=== PATIENT | female | born 1945 | race Caucasian/White ===

== ENCOUNTER 2017-09-24 14:22 | Inpatient (IN) ==
[2017-09-24 20:18] LABS: Baso % (Auto) 0.7 % (0.0-2.0); Eos # (Auto) 0.2 th/mm3 (0.0-0.4); Eos % (Auto) 2.9 % (0.0-4.0); Hematocrit 45.6 % (35.0-46.0); Hemoglobin 15.3 gm/dL (11.6-15.3); Lymph # (Auto) 2.3 th/mm3 (1.0-4.8); Lymph % (Auto) 33.8 % (9.0-44.0); Mean Corpuscular HGB Conc 33.5 % (32.0-36.0); Mean Corpuscular Hemoglobin 31.8 pg (27.0-34.0); Mean Platelet Volume 7.9 fL (7.0-11.0); Mono # (Auto) 0.7 th/mm3 (0.0-0.9); Mono % (Auto) 9.7 % (0.0-8.0); Neut # (Auto) 3.6 th/mm3 (1.8-7.7); Neut % (Auto) 52.9 % (16.0-70.0); Platelet Count 267 th/mm3 (150-450); Red Cell Distribution Width 13.3 % (11.6-17.2); White Blood Count 6.9 th/mm3 (4.0-11.0)
[2017-09-24 20:29] LABS: Activated Partial Thrombo Time 23.2 sec (24.3-30.1); Prothrombin Time 10.1 sec (9.8-11.6)
--- NOTE | 2017-09-24 20:36 | XR ---
EXAM DATE: 09/24/2017 8:13 PM EDT AGE/SEX: 72 years / Female INDICATIONS: Evaluate for pneumonia, pneumothorax, or communicable disease. Pre-op ORIF hip. CLINICAL DATA: This is the patient's initial encounter. Patient reports that signs and symptoms have been present for 1 day and indicates a pain score of 0/10. MEDICAL/SURGICAL HISTORY: None. None. COMPARISON: No prior exams available for comparison. FINDINGS: A single AP view of the chest demonstrates the lungs to be symmetrically aerated without evidence of mass, infiltrate or effusion. The cardiomediastinal contours are unremarkable. Osseous structures a re intact. CONCLUSION: No acute cardiopulmonary process. Electronically signed by: Jonathan Davis MD 09/24/2017 8:35 PM EDT
[2017-09-24 20:39] LABS: Albumin 3.6 g/dL (3.4-5.0); Anion Gap 10 meq/L (5-15); Aspartate Aminotransferase 20 U/L (15-37); Blood Urea Nitrogen 19 mg/dL (7-18); Calcium 9.1 mg/dL (8.5-10.1); Carbon Dioxide 26.4 meq/L (21.0-32.0); Chloride 103 meq/L (98-107); Glomerular Filtration Rate Greater Than 89 mL/min (>89); Glucose,Random 96 mg/dL (74-106); Potassium 3.4 meq/L (3.5-5.1); Sodium 139 meq/L (136-145)
[2017-09-24 20:40] LABS: Alanine Aminotransferase 20 U/L (10-53)
[2017-09-24 20:43] LABS: Alkaline Phosphatase 112 U/L (45-117); Total Protein 7.5 g/dL (6.4-8.2)
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
--- NOTE | 2017-09-24 21:10 | US ---
EXAM DATE: 09/24/2017 9:04 PM EDT AGE/SEX: 72 years / Female INDICATIONS: Right leg pain and swelling. CLINICAL DATA: This is the patient's initial encounter. Patient reports that signs and symptoms have been present for 1 day and indicates a pain score of 9/10. MEDICAL/SURGICAL HISTORY: Hypercholesterolemia. Appendectomy. COMPARISON: [facility], US LEG VENOUS DOPPLER, RIGHT, 09/17/2017. . TECHNIQUE: Venous ultrasound of both lower extremities was performed from the inguinal ligament to t he proximal calf. Real-time, color Doppler and spectral tracing, compression and augmentation techni ques were used. FINDINGS: There is occlusive thrombus in the right popliteal, peroneal and posterior tibial veins. T he common femoral vein and superficial femoral vein are patent. CONCLUSION: Occlusive thrombus in the right popliteal, peroneal, and posterior tibial veins. Electronically signed by: Jonathan Davis MD 09/24/2017 9:09 PM EDT
[2017-09-24] MEDS ORDERED: Temazepam 15 MG Capsule PO PRN (22:25)
[2017-09-24] MEDS ORDERED: Acetaminophen 325 MG Tablet PO PRN (22:25)
[2017-09-24] MEDS ORDERED: Bisacodyl 10 MG Supp RECTAL PRN (22:25)
[2017-09-24] MEDS ORDERED: Morphine Inj 4 MG/ML Vial IV.PUSH PRN (22:45)
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
[2017-09-24] MEDS: Enoxaparin Inj 60 MG/0.6 ML Syringe SQ SCH (23:20)
[2017-09-25] MEDS ORDERED: Chlorhexidine Gluconate 2% 1 Pack (2 Cloths) TOPICAL SCH (00:30)
[2017-09-25] MEDS ORDERED: Sodium Chlor 0.9% Inj 500 ML IV.SIG SCH (01:00)
[2017-09-25] MEDS: Sod Chloride 0.9% Inj 1,000 ML IV.CONT SCH ×2 (02:38→09:14)
[2017-09-25 07:32] LABS: Baso % (Auto) 0.4 % (0.0-2.0); Eos # (Auto) 0.2 th/mm3 (0.0-0.4); Hemoglobin 13.6 gm/dL (11.6-15.3); Lymph # (Auto) 1.7 th/mm3 (1.0-4.8); Lymph % (Auto) 27.8 % (9.0-44.0); Mean Corpuscular HGB Conc 33.9 % (32.0-36.0); Mean Corpuscular Volume 94.2 fL (80.0-100.0); Mean Platelet Volume 7.5 fL (7.0-11.0); Mono # (Auto) 0.6 th/mm3 (0.0-0.9); Mono % (Auto) 10.5 % (0.0-8.0); Neut # (Auto) 3.4 th/mm3 (1.8-7.7); Neut % (Auto) 57.3 % (16.0-70.0); Platelet Count 238 th/mm3 (150-450); Red Blood Count 4.24 mil/mm3 (4.00-5.30); Red Cell Distribution Width 13.1 % (11.6-17.2)
[2017-09-25 07:46] LABS: Alanine Aminotransferase 16 U/L (10-53); Albumin 2.8 g/dL (3.4-5.0); Anion Gap 10 meq/L (5-15); Aspartate Aminotransferase 15 U/L (15-37); Blood Urea Nitrogen 16 mg/dL (7-18); Calcium 8.6 mg/dL (8.5-10.1); Chloride 107 meq/L (98-107); Glomerular Filtration Rate Greater Than 89 mL/min (>89); Glucose,Random 86 mg/dL (74-106); Potassium 3.7 meq/L (3.5-5.1); Sodium 143 meq/L (136-145)
[2017-09-25 07:47] LABS: Alkaline Phosphatase 92 U/L (45-117); Total Protein 6.1 g/dL (6.4-8.2)
[2017-09-25] MEDS: Senna/Docusate Sodium 8.6/50 MG Tablet PO SCH ×2 (09:14→22:48)
[2017-09-25] MEDS: Enoxaparin Inj 60 MG/0.6 ML Syringe SQ SCH (09:14)
[2017-09-25] MEDS ORDERED: Lidocaine PF 1% Inj 5 ML Syringe INFILTRATN ONE (12:00)
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
--- NOTE | 2017-09-25 15:15 | MB ---
cc: Maxime Barraza MD DATE: 09/25/2017 REASON FOR CONSULTATION: Right femoral neck fracture. HISTORY OF PRESENT ILLNESS: The patient is a 72-year-old female with past history of hyperlipidemia, who did present to Dr. Candelario yesterday with chief complaint of right hip pain. She had a history of fall almost 2 weeks ago, significant right hip pain with difficult ambulation and found to have a valgus impacted right femoral neck fracture. After that evaluation, the patient was also noted to have increasing pain, swelling of the right calf with increasing right lower extremity edema, which was concerning for deep venous thrombosis. The patient was subsequently transferred to [facility] Emergency Room. She has had workup including laboratory studies, different imaging of the hip, and also ultrasound of the right lower extremity, which was positive for deep venous thrombosis. I was contacted last night as the orthopedic surgeon facilities operations technician regarding this patient's complex care. I did recommend, at that time, the patient to have 1 dose of Lovenox for DVT prophylaxis and decrease risk for propagation of the clot and embolization. I have evaluated the patient this morning and I have discussed extensively with her in regard to her condition and treatment options at this point. PAST MEDICAL HISTORY: High cholesterol. PAST SURGICAL HISTORY: Appendectomy. SOCIAL HISTORY: Nonsmoker, nondrinker, no drugs. REVIEW OF SYSTEMS: Negative for 10 systems other than HPI. MEDICATIONS: Include hydrocodone, Tylenol. PHYSICAL EXAMINATION: VITAL SIGNS: Temperature is 98, pulse is 80, respirations 16, blood pressure 150/70. HEENT: Normocephalic, atraumatic. Pupils round. Extraocular movements intact. NECK: Supple. LUNGS: Clear. HEART: Regular rate and rhythm. ABDOMEN: Soft, nontender. EXTREMITIES: She has pain with passive motion of the right hip. She can flex her ankle and toes distally. She does have calf swelling on the right side compared to the left. LABORATORY DATA: White blood cell count 6.9, hemoglobin is 15, hematocrit is 45. BUN is 19, creatinine 0.59, glucose is 96. Venous Doppler ultrasound 09/24/2017 shows an occlusive thrombus of the right popliteal, peroneal and tibial veins. IMPRESSION: A 72-year-old female, status post fall approximately 2 weeks ago with a right valgus impacted femoral neck fracture. She has deep venous thrombosis, right lower extremity. PLAN: I discussed the diagnosis with the patient and treatment options to include the option of nonoperative treatment. We spoke about surgery, including options of percutaneous screw fixation versus bipolar hemiarthroplasty replacement. Because of the alignment and valgus impaction of her fracture, I think this is amenable to percutaneous screw fixation. She does have increased risk as related to her development of deep venous thrombosis. I think it would be appropriate for the patient to undergo placement of an IVC filter preoperatively such that the patient would have a decreased risk of morbidity and mortality if the patient did have an embolic event around the perioperative time of surgery. Consulted Dr. Arana from interventional radiology and he has also asked I get a second opinion consultation per hospital policy from hematology. I did speak to the developmental services worker facilities operations technician and she was in agreement as well. With this further discussion and after placement of the IVC filter, the patient at that point has made decision to proceed with a right percutaneous pinning of her femoral neck fracture. She will receive anticoagulation therapy and blood thinning treatment modalities after surgery as well to help dissolve the clot. Decision for surgery has been made today after identification of the deep venous thrombosis and subsequent treatment of that thrombosis. MD LIBERTY Watson/ELIZABETH , 02:21 PM , 03:13 PM
[2017-09-25] MEDS ORDERED: Iohexol 350 MG/ML 50 ML Vial (for Rad Diag) IVCONTRAST ONE (15:55)
--- NOTE | 2017-09-25 16:14 | P.RAD ---
Post Procedure Progress Note - Procedure Information Supervising Radiologist: Med Arana MD - Plan of Activity See PACS Report for procedural detail/treatment. Vascular - Venous Procedure Abdominal Procedure(s): Retrievable IVC Filter
[2017-09-25] MEDS ORDERED: Iohexol 300 MG/ML 50 ML Vial (for Rad Diag) IVCONTRAST ONE (16:24)
[2017-09-25] MEDS ORDERED: Promethazine 25 MG Supp RECTAL PRN (16:31)
[2017-09-25] MEDS ORDERED: Morphine Inj 4 MG/ML Vial IV.PUSH PRN (16:31)
[2017-09-25] MEDS ORDERED: Post-op Orders (for Pharmacy) OTHER STA (16:31)
[2017-09-25] MEDS ORDERED: ceFAZolin 2 GM Premix Inj 2 GM/50 ML PIGGYBACK IV.SIG ONE (17:02)
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
[2017-09-25] MEDS ORDERED: fentaNYL Citrate Inj 100 MCG/2 ML Ampul ONE (17:45)
--- NOTE | 2017-09-25 18:45 | XR ---
EXAM DATE: 09/25/2017 6:08 PM EDT AGE/SEX: 72 years / Female INDICATIONS: Right hip pinning. CLINICAL DATA: This is the patient's initial encounter. Patient reports that signs and symptoms have been present for 1 day and indicates a pain score of Nonresponsive. MEDICAL/SURGICAL HISTORY: Hypercholesterolemia. Appendectomy. COMPARISON: PCI, XR HIP AP AND LAT, RIGHT, 09/13/2017. . FINDINGS: 2 images from the OR have been submitted. 2 screws are seen through the right femoral neck and head. The hardware is well placed. The right hip joint is normally aligned. CONCLUSION: Successful ORIF. Electronically signed by: Jonathan Davis MD 09/25/2017 6:44 PM EDT
[2017-09-25] MEDS ORDERED: Zolpidem Tartrate 5 MG Tablet PO PRN (21:00)
[2017-09-26] MEDS ORDERED: ceFAZolin Inj 2,000 MG in Sodium Chlor 0.9% Inj 80 ML IV.SIG SCH (01:00)
[2017-09-26] MEDS: ceFAZolin 2 GM Premix Inj 2 GM/50 ML PIGGYBACK IV.SIG SCH ×3 (01:01→16:31)
[2017-09-26] MEDS: Sod Chloride 0.9% Inj 1,000 ML IV.CONT SCH (05:11)
[2017-09-26 08:24] LABS: Hematocrit 40.4 % (35.0-46.0); Hemoglobin 13.9 gm/dL (11.6-15.3)
[2017-09-26] MEDS: Multivitamin/Minerals Therapeutic Tablet PO SCH (09:45)
[2017-09-26] MEDS: Folic Acid 1 MG Tablet PO SCH (09:45)
[2017-09-26] MEDS: Senna/Docusate Sodium 8.6/50 MG Tablet PO SCH ×2 (10:42→22:26)
--- NOTE | 2017-09-26 12:33 | P.PNOP ---
Subjective Interval history: pain controlled. Physical Exam Vital signs: Vital Signs 09/25/17 17:30 09/25/17 17:45 09/25/17 18:00 Temperature 97.9 F Pulse Rate 68 64 70 Respiratory Rate 14 14 14 Blood Pressure 125/60 128/55 L 132/61 Pulse Oximetry 100 100 100 09/25/17 18:15 09/25/17 18:30 09/25/17 20:00 Temperature 98.2 F 97.3 F L Pulse Rate 67 68 88 Respiratory Rate 14 14 18 Blood Pressure 142/58 H 140/61 150/70 H Pulse Oximetry 100 100 95 09/26/17 00:00 09/26/17 04:00 09/26/17 08:00 Temperature 98.8 F 97 F L 97.1 F L Pulse Rate 74 95 H 81 Respiratory Rate 20 18 16 Blood Pressure 128/67 148/78 H 138/65 Pulse Oximetry 95 99 95 Intake & Output 09/25/17 09/26/17 09/26/17 18:59 06:59 18:59 Intake Total 1400 / 1400 50 / 50 Output Total 10 / 10 Balance 1390 / 1390 50 / 50 Weight 60.6 kg Intake: IV 1000 / 1000 50 / 50 NS Inj 1,000 ML @ 100 mls/hr IV 1000 / 1000 .CONT .Q10H MICHAEL Rx#:[id number] Ancef 2 GM Premix Inj 2 gm In 50 / 50 50 ml @ 100 mls/hr IV.SIG Q8H MICHAEL Rx#:[id number] Anesthesia Amount 400 / 400 Output: Estimated Blood Loss 10 / 10 Other: # Voids 3 2 # Bowel Movements 1 Narrative: in bed, nad dressing c/d/i swelling in calf improving nvi Results - Labs CBC & Chem 7: 09/26/17 07:16 09/25/17 06:19 Laboratory Results - last 24 hr 09/26/17 07:16 Hgb 13.9 Hct 40.4 - Imaging Impressions Hip X-Ray 09/25/17 00:00 CONCLUSION: Successful ORIF. Assessment and Plan - Ortho Post Op Day # 1 - Assessment and Plan s/p PCP R hip fx dvt - had ivc filter placed pre-op nwb ok to maintain dressing unless saturated lovenox d/c planning to snf f/up dr. lynn 2 weeks
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
[2017-09-26] MEDS: Enoxaparin Inj 60 MG/0.6 ML Syringe SQ SCH (16:23)
[2017-09-27] MEDS: Enoxaparin Inj 60 MG/0.6 ML Syringe SQ SCH ×2 (05:43→16:45)
[2017-09-27] MEDS: Sod Chloride 0.9% Inj 1,000 ML IV.CONT SCH (05:48)
[2017-09-27] MEDS: Senna/Docusate Sodium 8.6/50 MG Tablet PO SCH ×2 (09:38→20:30)
[2017-09-27] MEDS: Multivitamin/Minerals Therapeutic Tablet PO SCH (09:38)
[2017-09-27] MEDS: Folic Acid 1 MG Tablet PO SCH (09:40)
[2017-09-27 10:48] LABS: Hematocrit 40.9 % (35.0-46.0); Mean Corpuscular HGB Conc 34.4 % (32.0-36.0); Mean Corpuscular Hemoglobin 32.7 pg (27.0-34.0); Mean Corpuscular Volume 95.1 fL (80.0-100.0); Mean Platelet Volume 8.1 fL (7.0-11.0); Platelet Count 229 th/mm3 (150-450); Red Cell Distribution Width 13.2 % (11.6-17.2); White Blood Count 6.6 th/mm3 (4.0-11.0)
[2017-09-27 11:01] LABS: Calcium 8.5 mg/dL (8.5-10.1); Carbon Dioxide 27.5 meq/L (21.0-32.0); Potassium 3.8 meq/L (3.5-5.1)
--- NOTE | 2017-09-27 12:14 | ECG ---
Date Performed: 09/25/2017 Time Performed: 16:38:04 PTAGE: 72 years EKG: Sinus rhythm NORMAL ECG NO PREVIOUS TRACING DOCTOR: Guadalupe Solis Interpretating Date/Time 09/27/2017 12:06:40
--- NOTE | 2017-09-27 13:36 | P.PNONC ---
Subjective Interval history: Patient sitting up in chair in no acute distress. She states that she would like me to look at a lump beside her tailbone. She reports that she noticed this a few weeks ago and she is not sure if it is secondary to sitting more or if there is something actually there. She reports pain in her right hip. Denies chest pain or shortness of breath. Objective Vital Signs/Intake & Output: Vital Signs 09/26/17 16:00 09/26/17 20:00 09/27/17 00:00 Temperature 99.4 F 99.4 F 98.6 F Pulse Rate 96 H 88 90 Respiratory Rate 14 16 16 Blood Pressure 145/69 H 130/60 120/58 L Pulse Oximetry 96 97 96 09/27/17 04:00 09/27/17 08:00 Temperature 97.6 F 98.0 F Pulse Rate 76 76 Respiratory Rate 16 18 Blood Pressure 114/56 L 127/62 Pulse Oximetry 98 95 Intake & Output 09/26/17 09/27/17 09/27/17 18:59 06:59 18:59 Intake Total 150 / 150 150 / 150 Balance 150 / 150 150 / 150 Weight 61.2 kg Intake: IV 150 / 150 Ancef 2 GM Premix Inj 2 gm In 100 / 100 50 ml @ 100 mls/hr IV.SIG Q8H MICHAEL Rx#:[id number] Oral 150 / 150 Other: # Voids 4 1 Date of Last Bowel Movement 09/24/17 09/24/17 Result Diagrams: 09/27/17 09:31 09/27/17 09:31 Laboratory Results: Laboratory Results - last 24 hr 09/27/17 09/27/17 09:31 09:31 WBC 6.6 RBC 4.30 Hgb 14.0 Hct 40.9 MCV 95.1 MCH 32.7 MCHC 34.4 RDW 13.2 Plt Count 229 MPV 8.1 Sodium 143 Potassium 3.8 Chloride 107 Carbon Dioxide 27.5 Anion Gap 9 BUN 13 Creatinine 0.68 Estimated GFR 85 L Random Glucose 105 Calcium 8.5 Medications: Active Medications Generic Name Dose Route Start Last Admin Trade Name Freq PRN Reason Stop Dose Admin Enoxaparin Sodium 60 mg 09/26/17 17:00 09/27/17 05:43 Lovenox Inj SQ 60 mg Q12H MICHAEL Administration Folic Acid 1 mg 09/26/17 09:00 09/27/17 09:40 Folic Acid PO 1 mg DAILY MICHAEL Administration Sodium Chloride 1,000 mls @ 100 mls/hr 09/24/17 23:00 09/27/17 05:48 Ns Inj IV.CONT Not Given .Q10H MICHAEL Lactated Ringer's 1,000 mls @ 30 mls/hr 09/25/17 00:30 09/27/17 05:47 Lr 1000 Ml Inj IV.SIG 09/28/17 00:18 Not Given .Q24H MICHAEL Lactated Ringer's 1,000 mls @ 100 mls/hr 09/25/17 16:45 09/27/17 09:43 Lr 1000 Ml Inj IV.CONT Not Given .Q10H MICHAEL Multivitamins/Minerals 1 tab 09/26/17 09:00 09/27/17 09:38 Theragran-M PO 1 tab DAILY MICHAEL Administration Pantoprazole Sodium 40 mg 09/26/17 09:00 09/27/17 09:40 Protonix PO 40 mg DAILY MICHAEL Administration Senna/Docusate Sodium 1 tab 09/25/17 09:00 09/27/17 09:38 [place]-Colace PO Not Given BID MICHAEL Sodium Chloride 2 ml 09/25/17 21:00 09/27/17 09:40 Ns Flush IV.FLUSH 2 ml BID MICHAEL Administration Thiamine HCl 100 mg 09/26/17 09:00 09/27/17 09:40 Vitamin B1 PO 100 mg DAILY MICHAEL Administration Objective Remarks: GENERAL: Well-nourished, well-developed anxious elderly female patient. Sitting in chair, in no acute distress. SKIN: Warm and dry. Right supraclavicular gauze bandage dry and intact. HEAD: Normocephalic. EYES: No scleral icterus. No injection or drainage. NECK: Supple, trachea midline. CARDIOVASCULAR: Regular rate and rhythm without murmurs. RESPIRATORY: Breath sounds equal bilaterally. No accessory muscle use. GASTROINTESTINAL: Abdomen soft, non-tender, nondistended. EXTREMITIES: No cyanosis, or edema. Bandage to right hip, dry and intact. MUSCULOSKELETAL: Adequate muscle tone. NEUROLOGICAL: No obvious focal deficit. Awake, alert, and oriented x3. PSYCHIATRIC: Anxious; insight and judgment normal. Assessment/Plan - Plan This is a 72-year-old female patient who presented to the hospital after a fall and was found to have a right femoral neck fracture. She was also found to have an occlusive thrombus in the right popliteal, peroneal, and posterior tibial veins. A retrievable IVC filter was placed prior to her surgery. The plan is to remove the IVC filter prior to hospital discharge. Plan: 1. Continue Lovenox as prescribed. Monitor for bleeding. 2. We will continue to monitor her postop progression. Prior to discharge from the hospital the IVC filter will be removed and she will be on long-term anticoagulation. - Attending Statement Pt seen and examined yesterday. Discussed w/ Dr. Arana. Tolerating anticoagulant therapy well. No bleeding in R hip. Anticipate IVC filter can be removed before DC to continue anticoagulation.
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
--- NOTE | 2017-09-27 14:39 | P.PNOP ---
Subjective Interval history: pain under control. Physical Exam Vital signs: Vital Signs 09/26/17 16:00 09/26/17 20:00 09/27/17 00:00 Temperature 99.4 F 99.4 F 98.6 F Pulse Rate 96 H 88 90 Respiratory Rate 14 16 16 Blood Pressure 145/69 H 130/60 120/58 L Pulse Oximetry 96 97 96 09/27/17 04:00 09/27/17 08:00 Temperature 97.6 F 98.0 F Pulse Rate 76 76 Respiratory Rate 16 18 Blood Pressure 114/56 L 127/62 Pulse Oximetry 98 95 Intake & Output 09/26/17 09/27/17 09/27/17 18:59 06:59 18:59 Intake Total 150 / 150 150 / 150 Balance 150 / 150 150 / 150 Weight 61.2 kg Intake: IV 150 / 150 Ancef 2 GM Premix Inj 2 gm In 100 / 100 50 ml @ 100 mls/hr IV.SIG Q8H MICHAEL Rx#:[id number] Oral 150 / 150 Other: # Voids 4 1 Date of Last Bowel Movement 09/24/17 09/24/17 Narrative: in bed, nad dressing c/d/i thigh soft swelling calf, nontender nvi Results - Labs CBC & Chem 7: 09/27/17 09:31 09/27/17 09:31 Laboratory Results - last 24 hr 09/27/17 09/27/17 09:31 09:31 WBC 6.6 RBC 4.30 Hgb 14.0 Hct 40.9 MCV 95.1 MCH 32.7 MCHC 34.4 RDW 13.2 Plt Count 229 MPV 8.1 Sodium 143 Potassium 3.8 Chloride 107 Carbon Dioxide 27.5 Anion Gap 9 BUN 13 Creatinine 0.68 Estimated GFR 85 L Random Glucose 105 Calcium 8.5 Assessment and Plan - Ortho Post Op Day # 2 - Assessment and Plan s/p PCP R hip fx POD2 dvt - had ivc filter placed pre-op. wants it removed prior to d/c nwb ok to maintain dressing unless saturated lovenox d/c planning to snf f/up dr. lynn 2 weeks
[2017-09-28] MEDS: Enoxaparin Inj 60 MG/0.6 ML Syringe SQ SCH ×2 (06:46→18:18)
[2017-09-28] MEDS: Senna/Docusate Sodium 8.6/50 MG Tablet PO SCH ×2 (08:06→20:38)
[2017-09-28] MEDS: Folic Acid 1 MG Tablet PO SCH (08:06)
[2017-09-28] MEDS: Multivitamin/Minerals Therapeutic Tablet PO SCH (08:06)
--- NOTE | 2017-09-28 08:55 | P.PNOP ---
Subjective Interval history: pain under control. Physical Exam Vital signs: Vital Signs 09/27/17 12:00 09/27/17 16:00 09/27/17 20:00 Temperature 98.2 F 97.8 F 98.1 F Pulse Rate 83 87 83 Respiratory Rate 18 18 16 Blood Pressure 138/65 130/61 125/62 Pulse Oximetry 96 95 96 09/28/17 00:00 09/28/17 00:30 09/28/17 08:00 Temperature 98.1 F 97.8 F Pulse Rate 80 75 Respiratory Rate 16 18 Blood Pressure 123/60 123/65 Pulse Oximetry 95 Intake & Output 09/27/17 09/28/17 09/28/17 18:59 06:59 18:59 Intake Total 600 / 600 240 / 240 Balance 600 / 600 240 / 240 Weight 62 kg Intake: Oral 600 / 600 240 / 240 Other: # Voids 3 4 # Urine Diapers 3 Date of Last Bowel Movement 09/27/17 # Bowel Movements 0 Narrative: in bed, nad dressing R hip c/d/i thigh soft swelling RLE, scd on LLE nvi Results - Labs CBC & Chem 7: 09/27/17 09:31 09/27/17 09:31 Laboratory Results - last 24 hr 09/27/17 09/27/17 09:31 09:31 WBC 6.6 RBC 4.30 Hgb 14.0 Hct 40.9 MCV 95.1 MCH 32.7 MCHC 34.4 RDW 13.2 Plt Count 229 MPV 8.1 Sodium 143 Potassium 3.8 Chloride 107 Carbon Dioxide 27.5 Anion Gap 9 BUN 13 Creatinine 0.68 Estimated GFR 85 L Random Glucose 105 Calcium 8.5 Assessment and Plan - Ortho Post Op Day # 3 - Assessment and Plan s/p PCP R hip fx POD3 dvt - had ivc filter placed pre-op. wants it removed prior to d/c nwb ok to maintain dressing unless saturated lovenox d/c planning to snf - cleared by ortho f/up dr. lynn 2 weeks
--- NOTE | 2017-09-28 10:26 | P.PNONC ---
Subjective Interval history: Afebrile Patient reports she has pain in her tailbone Denies pain at right hip Feels like she is not ready to go home today No bleeding Objective Vital Signs/Intake & Output: Vital Signs 09/27/17 12:00 09/27/17 16:00 09/27/17 20:00 Temperature 98.2 F 97.8 F 98.1 F Pulse Rate 83 87 83 Respiratory Rate 18 18 16 Blood Pressure 138/65 130/61 125/62 Pulse Oximetry 96 95 96 09/28/17 00:00 09/28/17 00:30 09/28/17 08:00 Temperature 98.1 F 97.8 F Pulse Rate 80 75 Respiratory Rate 16 18 Blood Pressure 123/60 123/65 Pulse Oximetry 95 Intake & Output 09/27/17 09/28/17 09/28/17 18:59 06:59 18:59 Intake Total 600 / 600 240 / 240 Balance 600 / 600 240 / 240 Weight 136 lb 10.986 oz Intake: Oral 600 / 600 240 / 240 Other: # Voids 3 4 # Urine Diapers 3 Date of Last Bowel Movement 09/27/17 09/27/17 # Bowel Movements 0 Result Diagrams: 09/27/17 09:31 09/27/17 09:31 Laboratory Results: Laboratory Results - last 24 hr 09/27/17 09/27/17 09:31 09:31 WBC 6.6 RBC 4.30 Hgb 14.0 Hct 40.9 MCV 95.1 MCH 32.7 MCHC 34.4 RDW 13.2 Plt Count 229 MPV 8.1 Sodium 143 Potassium 3.8 Chloride 107 Carbon Dioxide 27.5 Anion Gap 9 BUN 13 Creatinine 0.68 Estimated GFR 85 L Random Glucose 105 Calcium 8.5 Medications: Active Medications Generic Name Dose Route Start Last Admin Trade Name Freq PRN Reason Stop Dose Admin Hydrocodone Bitart/Acetaminophen 1 tab 09/24/17 22:26 09/28/17 08:07 [place] 5/325 PO 1 tab Q4H PRN Administration PAIN 3-5 Enoxaparin Sodium 60 mg 09/26/17 17:00 09/28/17 06:46 Lovenox Inj SQ 60 mg Q12H MICHAEL Administration Folic Acid 1 mg 09/26/17 09:00 09/28/17 08:06 Folic Acid PO 1 mg DAILY MICHAEL Administration Sodium Chloride 1,000 mls @ 100 mls/hr 09/24/17 23:00 09/27/17 05:48 Ns Inj IV.CONT Not Given .Q10H MICHAEL Multivitamins/Minerals 1 tab 09/26/17 09:00 09/28/17 08:06 Theragran-M PO 1 tab DAILY MICHAEL Administration Pantoprazole Sodium 40 mg 09/26/17 09:00 09/28/17 08:06 Protonix PO 40 mg DAILY MICHAEL Administration Senna/Docusate Sodium 1 tab 09/25/17 09:00 09/28/17 08:06 [place]-Colace PO 1 tab BID MICHAEL Administration Sodium Chloride 2 ml 09/25/17 21:00 09/28/17 08:08 Ns Flush IV.FLUSH 2 ml BID MICHAEL Administration Thiamine HCl 100 mg 09/26/17 09:00 09/28/17 08:06 Vitamin B1 PO 100 mg DAILY MICHAEL Administration Objective Remarks: GENERAL: Older female resting in chair at bedside no obvious distress SKIN: Warm and dry. Bandage to right hip. Clean dry and intact. HEAD: Normocephalic. EYES: No scleral icterus. No injection or drainage. NECK: Supple, trachea midline. No JVD or lymphadenopathy. CARDIOVASCULAR: Regular rate and rhythm without murmurs. RESPIRATORY: Clear posteriorly. Breathing unlabored at rest. GASTROINTESTINAL: Abdomen soft, non-tender, nondistended. EXTREMITIES: No cyanosis. Right lower extremity edema MUSCULOSKELETAL: Adequate muscle tone. NEUROLOGICAL: No obvious focal deficit. Awake, alert, and oriented x3. Assessment/Plan - Plan This is a 72-year-old female patient who presented to the hospital after a fall and was found to have a right femoral neck fracture. She was also found to have an occlusive thrombus in the right popliteal, peroneal, and posterior tibial veins. A retrievable IVC filter was placed prior to her surgery. The plan is to remove the IVC filter prior to hospital discharge. Plan: 1. Patient will likely be discharged tomorrow after placement for rehab can be made. 2. Call placed to specials; they report he will likely not be able to get to IVC filter removal until tomorrow. Order placed. Discussed with Dr. De Luna. 3. Recommend holding Lovenox dose prior to IVC filter removal. - Attending Statement The exam, history, and the medical decision-making described in the above note were completed with the assistance of the mid-level provider. I reviewed and agree with the findings presented. I attest that I had a [id number] encounter with the patient on the same day, and personally performed and documented my assessment and findings in the medical record. Risk and benefits of filter removal tomorrow discussed. Patient agree to proceed with removal prior to discharge. Recommend removal during same hospitalization for the following reasons. 1. improve accountability for retrievable filters deployed for acute contraindication to anticoagulation. Patients once discharge may forget they have a filter, or fail to return for retrieval. 2. period of absolute contraindication to anticoagulation has passed, pt tolerated several days of LMWH at full doses without bleeding event or hematoma. R hip scar site looks good. 3. sooner retrieval should improved ease of removal since body has not had time to epithelialize around filter Anticipate resumption of anticoagulation after removal. Ok for DC to rehab tomorrow post removal. Continued management DVT at Rehab, OK to switch to NOAC of choice. May follow up with PCP for management of anticoagulation. Information about hematology clinic at [facility] also provided.
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
--- NOTE | 2017-09-28 17:45 | XR ---
EXAM DATE: 09/28/2017 5:25 PM EDT AGE/SEX: 72 years / Female INDICATIONS: Low back pain. No trauma. CLINICAL DATA: This is the patient's initial encounter. Patient reports that signs and symptoms have been present for 3 days and indicates a pain score of 7/10. MEDICAL/SURGICAL HISTORY: None. None. COMPARISON: No prior exams available for comparison. FINDINGS: No appreciable compression deformities, or spondylolysis is seen. Slight degenerative changes are see n with mild osteophyte formation and hypertrophic change. Chronic atherosclerotic calcifications are seen without any definite aneurysmal dilatations for technique. IVC filter is in place. There is sign ificant facet arthrosis L4-5 and L5-S1 bilaterally and minimal degenerative anterolisthesis L4-5 on t he order of 3 to 4 mm. There is moderate amount of stool in the colon. CONCLUSION: Minimal degenerative anterolisthesis L4-5, chronic changes as above Electronically signed by: Jm Martinez MD 09/28/2017 5:44 PM EDT
--- NOTE | 2017-09-29 08:21 | IR ---
EXAM DATE: 09/25/2017 6:12 PM EDT AGE/SEX: 72 years / Female INDICATIONS: Patient with history of deep vein thrombosis in need of inferior vena cava filter place ment. CLINICAL DATA: This is the patient's initial encounter. Patient reports that signs and symptoms have been present for 1 day and indicates a pain score of 0/10. MEDICAL/SURGICAL HISTORY: Hypertension. Deep venous thrombosis. Hypercholesterolemia. Appende ctomy. COMPARISON: . FLUORO TIME (min): 1.47 IMAGE SERIES: 3 ACCESS SITE: Right internal jugular vein CONTRAST (cc): 10 Omnipaque (iohexol) 350 MEDICATION(S): 2mg lorazepam (Ativan) IM DEVICE(S): Right Inferior Vena Cava, [place] Vena Cava Filter (Retrievable) . . PROCEDURE : 1. Ultrasound-guided venipuncture. 2. Inferior venacavogram. 3. Inferior vena cava filter placement. 4. Conscious sedation with continuous EKG and oximetry monitoring. The risks, benefits and alternatives to the procedure were explained and verbal and written consent w as obtained. The site was prepped in sterile fashion. Full sterile technique was used, including ca p, mask, sterile gloves and gown and a large sterile sheet. Hand hygiene and 2% chlorhexidine and/or betadine/alcohol prep was utilized per protocol for cutaneous antisepsis. Sterile gel and sterile p robe cover were utilized for ultrasound guidance. The skin and subcutaneous tissues were infiltrated with local anesthetic solution. With ultrasound and fluoroscopic guidance the targeted vein was punctured and a vascular sheath was p laced. Inferior venacavogram was performed to demonstrate level of renal veins. No caval thrombus was identified. The prescribed filter was deployed in the infrarenal inferior vena cava. Following deplo yment the filter was identified in good position. Conscious sedation was performed with the prescribed dosages and duration as above in the presence of an independent trained radiology nurse to assist in the monitoring of the patient. EKG and oximetry remained stable throughout the procedure. The patient tolerated the procedure well and there were n o complications. The patient was sent to post anesthesia recovery in stable condition. CONCLUSION: 1. Uncomplicated inferior vena cava filter placement as above. Electronically signed by: Med Arana MD 09/29/2017 8:19 AM EDT
[2017-09-29] MEDS: Folic Acid 1 MG Tablet PO SCH (08:55)
[2017-09-29] MEDS: Senna/Docusate Sodium 8.6/50 MG Tablet PO SCH (08:55)
[2017-09-29] MEDS: Multivitamin/Minerals Therapeutic Tablet PO SCH (08:55)
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
[2017-09-29] MEDS ORDERED: fentaNYL Citrate Inj 250 MCG/5 ML Ampul ONE (12:28)
[2017-09-29] MEDS ORDERED: Iohexol 350 MG/ML 50 ML Vial (for Rad Diag) IVCONTRAST ONE (13:31)
--- NOTE | 2017-09-29 14:22 | P.RAD ---
Post Procedure Progress Note - Pre Procedure Diagnosis (1) DVT (deep venous thrombosis) - Post Procedure Diagnosis (1) DVT (deep venous thrombosis) - Procedure Information Procedure Date: 09/29/17 Supervising Radiologist: Shailesh Alexandre MD Estimated blood loss (mL): 0 Anesthesia: Local, Conscious Sedation - Plan of Activity Patient to Unit: ROPU Patient Condition: Good Additional Comments: IVC gram preformed prior to filter removal. Exam demonstrated thrombus trapped within the filter. The filter cannot be removed at this time. Please reconsult post 3-6 months of anti coagulation therapy. See PACS Report for procedural detail/treatment.
--- NOTE | 2017-10-04 14:22 | MP ---
cc: Maxime Barraza MD DATE OF OPERATION: 09/25/2017 PREOPERATIVE DIAGNOSIS: Right femoral neck fracture. POSTOPERATIVE DIAGNOSIS: Right femoral neck fracture. PROCEDURE PERFORMED: Percutaneous screw fixation, right femoral neck fracture. SURGEON: Maxime Barraza MD SAMPLE MOUNTER: ROSCOE Stewart. ANESTHESIA: General. ESTIMATED BLOOD LOSS: Less than 10 mL COMPLICATIONS: None. IMPLANTS USED: Synthes. JUSTIFICATION: This patient is a 72-year-old female who fell sustaining a right valgus impacted femoral neck fracture. She has had persistent symptoms of pain in regards to condition and has failed conservative treatment. She has also had pain and swelling of the right lower extremity, was diagnosed by diagnosed with a DVT by ultrasound. She has undergone preoperative placement of an IVC filter. The patient was counseled as to the risks, benefits and alternatives to the above-named proposed surgical procedure and she wish to proceed with surgery. PROCEDURE IN DETAIL: Written consent was obtained. The patient was identified by name, taken to operating room and placed supine in the operating table. General anesthesia was administered as well as 2 grams of IV Ancef. The patient was carefully transferred to the fracture table. The right hip and right lower extremity were prepped and draped using isopropyl alcohol, Dura Prep solution and ChloraPrep solution. After a timeout was performed, a longitudinal incision was made over the lateral aspect of the right hip. The fascial layer was incised. Two guidewires were then drilled from the lateral cortex transversing the femoral neck fracture obtaining purchase within the femoral head. Subsequently, subsequently 2 Synthes 7.3 mm partially threaded stainless steel cannulated screws were inserted over the guide wire for fixation of the femoral neck fracture. Fluoroscopic imaging showed appropriate implantation of hardware with fracture reduction. Surgical wound was thoroughly irrigated with sterile saline solution. Subcutaneous layer was then closed with 3-0 Vicryl. Skin incision closed with Dermabond. Sterile dressing was applied. Patient tolerated procedure well. There were no intraoperative complications noted. MD LIBERTY Watson/ , 05:20 PM , 05:31 PM
--- NOTE | 2017-10-06 16:55 | IR ---
EXAM DATE: 09/29/2017 1:30 PM EDT AGE/SEX: 72 years / Female INDICATIONS: Patient with history of deep vein thrombosis in need of evaluation of inferior vena cav a filter for possible removal. CLINICAL DATA: This is the patient's initial encounter. Patient reports that signs and symptoms have been present for 3 days and indicates a pain score of 0/10. MEDICAL/SURGICAL HISTORY: Hypertension. Hip fracture. DVT. Appendectomy. COMPARISON: . FLUORO TIME (min): 0.8 IMAGE SERIES: 4 ACCESS SITE: Right internal jugular vein SEDATION TIME (min): 30 CONTRAST (cc): 15 Omnipaque (iohexol) 350 MEDICATION(S): 1mg midazolam (Versed) IV 100mcg fentanyl (Sublimaze) IV DEVICE(S): . . PROCEDURE : 1. Ultrasound-guided puncture of the right femoral vein. 2. Conscious sedation with continuous EKG and Oximetry monitoring. 3. IVC gram. 4. The risks, benefits and alternatives to the procedure were explained and verbal and written consent w as obtained. The site was prepped in sterile fashion. Full sterile technique was used, including ca p, mask, sterile gloves and gown and a large sterile sheet. Hand hygiene and 2% chlorhexidine and/or betadine/alcohol prep was utilized per protocol for cutaneous antisepsis. Sterile gel and sterile p robe cover were utilized for ultrasound guidance. The skin and subcutaneous tissues were infiltrated with local anesthetic solution. With ultrasound and fluoroscopic guidance the right internal jugular vein was punctured and a vascula r sheath was placed. A.035 angle Glidewire and Omni flush catheter were advanced into the IVC below the IVC filter. An IVC gram was performed. Results: The examination demonstrates brisk flow through the cava however, there is considerable thro mbus within the IVC filter. The IVC filter cannot be removed at this time. The puncture site was closed with manual pressure and hemostasis was obtained. The patient tolerated the procedure well and there were no complications. Conscious sedation was performed with the prescribed dosages and duration as above in the presence of an independent trained radiology nurse to assist in the monitoring of the patient. EKG and oximetry remained stable throughout the procedure. 1. There is considerable thrombus within the IVC filter. The IVC filter cannot be removed at this ti me. Electronically signed by: Shailesh Alexandre MD 10/06/2017 4:54 PM EDT
== END 2017-09-29 18:29 ==
LOC: NEPE 14:22 → NEDA 22:25 → N06 09-25
PROVIDERS: ADMIT Hospitalist; ATTEND Hospitalist
PROC: ORIFFEM (2017-09-25 16:43)